=== PATIENT | male | born 1945 | race Caucasian/White ===

== ENCOUNTER 2017-04-03 22:59 | Emergency (ER) | payer OTHER ==
[2017-04-03] MEDS ORDERED: MVI, Adult with Vitamin K 10 ML, Thiamine 100 MG, Folic Acid 1 MG in Sodium Chloride 0.... IV ONE ×4 (23:03)
--- NOTE | 2017-04-03 23:05 | EDM.PDOC ---
ED HPI GENERAL MEDICAL PROBLEM - General Chief Complaint: Drug or Alcohol Abuse Stated Complaint: UNK Time Seen by Provider: 04/03/17 23:04 Source of Information: Reports: Patient - History of Present Illness INITIAL COMMENTS - FREE TEXT/NARRATIVE: HISTORY AND PHYSICAL: History of present illness: [Patient presents via EMS after drinking alcohol all day since 3 PM he was unable to get into his vehicle and his friend called the ambulance Patient is alert cooperative in good spirits no complaints, he did not want to come in but his friend was insistent as he is unable to climb into his pickup, he has been ambulatory here in the ER is noncombative and very cooperative clinically does not appear. Intoxicated however his alcohol level is came back at a .21. His renal insufficiency his creatinine is 1.7 versus baseline for him as 1.6 is on chart from previous lab, total CPK is slightly elevated at 365 No fever nausea vomiting chills sweats no chest pain shortness breath headache dizziness palpitation about a urine symptoms ] Review of systems: As per history of present illness and below otherwise all systems reviewed and negative. Past medical history: As per history of present illness and as reviewed below otherwise noncontributory. Surgical history: As per history of present illness and as reviewed below otherwise noncontributory. Social history: No reported history of drug or alcohol abuse. Family history: As per history of present illness and as reviewed below otherwise noncontributory. Physical exam: HEENT: Atraumatic, normocephalic, pupils reactive, negative for conjunctival pallor or scleral icterus, mucous membranes moist, throat clear, neck supple, nontender, trachea midline. Lungs: Clear to auscultation, breath sounds equal bilaterally, chest nontender. Heart: S1S2, regular, negative for clicks, rubs, or JVD. Abdomen: Soft, nondistended, nontender. Negative for masses or hepatosplenomegaly. Negative for costovertebral tenderness. Pelvis: Stable nontender. Genitourinary: Deferred. Rectal: Deferred. Extremities: Atraumatic, negative for cords or calf pain. Neurovascular unremarkable. Neuro: Awake, alert, oriented. Cranial nerves II through XII unremarkable. Cerebellum unremarkable. Motor and sensory unremarkable throughout. Exam nonfocal. Diagnostics: [CBC CMP cardiac enzymes EKG chest 1 view Alcohol level ] Therapeutics: [Banana bag ] Impression: [Alcohol intoxication Mild dehydration with mild rhabdomyolysis Chronic history of baseline] Definitive disposition and diagnosis as appropriate pending reevaluation and review of above. - Related Data Allergies Allergy/AdvReac Type Severity Reaction Status Date / Time No Known Allergies Allergy Verified 04/03/17 23:04 Home Meds: Home Meds Albuterol [Proventil HFA] 1 puff INH ASDIRECTED 08/07/15 [History] Aspirin/Calcium Carbonate/Mag [Aspirin Buffered 325 mg Tab] 1 tab PO DAILY 08/06 [History] Clopidogrel [Plavix] 1 tab PO DAILY 08/07/15 [History] Ferrous Gluconate [Iron] 1 tab PO DAILY 08/07/15 [History] Gluc/Jacobo-Msm#1/Vit C/Clint/Bor [Bibabea-Kwhsl-IYJ Complex Cplt] 1 tab PO DAILY 08/07/15 [History] Ibuprofen 3 tab PO TID 08/07/15 [History] Ipratropium/Albuterol Sulfate [Combivent Respimat Inhal [place]] 1 puff INH ASDIRECTED 08/07/15 [History] Metoprolol Tartrate 1 tab PO BID 08/07/15 [History] Nitroglycerin [Nitrostat] 1 tab SL ASDIRECTED 08/07/15 [History] Pantoprazole Sodium [Protonix] 1 tab PO DAILY 08/07/15 [History] Rosuvastatin Calcium [Crestor] 1 tab PO DAILY 08/07/15 [History] Tiotropium [Spiriva HandiHaler] 1 cap INH ASDIRECTED 08/07/15 [History] amLODIPine Besylate [Amlodipine Besylate] 1 tab PO DAILY 08/07/15 [History] Past Medical History HEENT History: Reports: Allergic Rhinitis Other HEENT History: wears glasses, has upper and lower dentures Cardiovascular History: Reports: Aneurysm, CAD, High Cholesterol, Hypertension Other Cardiovascular History: 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 , s/p endarterectomy of left carotid artery- aortic, bilateral iliac and left leg stents Respiratory History: Reports: Asthma, COPD, Sleep Apnea, SOB Gastrointestinal History: Reports: None Genitourinary History: Reports: None Musculoskeletal History: Reports: Fracture Other Musculoskeletal History: hx of fx ribs, states has a bad disc in his back , occasional back pain Neurological History: Reports: None Psychiatric History: Reports: None Endocrine/Metabolic History: Reports: Obesity/BMI 30+ Hematologic History: Reports: None Immunologic History: Reports: None Oncologic (Cancer) History: Reports: None Dermatologic History: Reports: None - Past Surgical History Cardiovascular Surgical History: Reports: AAA Repair, Carotid Endarterectomy, Coronary Artery Stent GI Surgical History: Reports: Colonoscopy, Hernia, Abdominal, Hernia, Inguinal Social & Family History - Tobacco Use Smoking Status *Q: Former Smoker - Recreational Drug Use Recreational Drug Use: No Drug Use in Last 12 Months: No ED ROS GENERAL - Review of Systems Review Of Systems: ROS reveals no pertinent complaints other than HPI. ED EXAM, GENERAL - Physical Exam Exam: See Below Course - Vital Signs Last Recorded V/S: Last Vital Signs Temp 97.1 F 04/03/17 23:04 Pulse 89 04/03/17 23:04 Resp 20 04/03/17 23:04 BP 167/64 H 04/03/17 23:04 Pulse Ox 92 L 04/03/17 23:04 - Orders/Labs/Meds Orders: Active Orders 24 hr Category Date Time Status EKG Documentation Completion [RC] STAT Care 04/03/17 23:00 Active Chest 1V Frontal [CR] Stat Exams 04/03/17 23:00 Taken UA W/MICROSCOPIC [URIN] Stat Lab 04/03/17 23:55 Received MVI, Adult with Vitamin K [Infuvite Adult] 10 ml Med 04/03/17 23:03 Active Thiamine [Vitamin B-1] 100 mg Folic Acid 1 mg Sodium Chloride 0.9% [Normal Saline] 1,000 ml IV ONETIME Medication Orders Multivitamins/Minerals 10 ml/Thiamine HCl 100 mg/ Folic Acid 1 mg/ Sodium Chloride 1,011.2 mls @ 150 mls/hr IV ONETIME ONE Stop: 04/04/17 05:47 Last Admin: 04/03/17 23:56 Dose: 150 mls/hr Labs: Laboratory Tests 04/03/17 04/03/17 Range/Units 22:15 22:15 WBC 11.27 H (4.0-11.0) K/uL RBC 4.87 (4.50-5.90) M/uL Hgb 15.5 (13.0-17.0) g/dL Hct 45.6 (38.0-50.0) % MCV 93.6 (80.0-98.0) fL MCH 31.8 (27.0-32.0) pg MCHC 34.0 (31.0-37.0) g/dL RDW Std Deviation 52.5 (28.0-62.0) fl RDW Coeff of Caro 15 (11.0-15.0) % Plt Count 150 (150-400) K/uL MPV 9.20 (7.40-12.00) fL Neut % (Auto) 80.0 (48.0-80.0) % Lymph % (Auto) 8.7 L (16.0-40.0) % [place] % (Auto) 8.5 (0.0-15.0) % Eos % (Auto) 2.5 (0.0-7.0) % Baso % (Auto) 0.3 (0.0-1.5) % Neut # (Auto) 9.0 H (1.4-5.7) K/uL Lymph # (Auto) 1.0 (0.6-2.4) K/uL [place] # (Auto) 1.0 H (0.0-0.8) K/uL Eos # (Auto) 0.3 (0.0-0.7) K/uL Baso # (Auto) 0.0 (0.0-0.1) K/uL Nucleated RBC % 0.0 /100WBC Nucleated RBCs # 0 K/uL Sodium 139 (136-146) mmol/L Potassium 4.7 (3.5-5.1) mmol/L Chloride 108 (98-110) mmol/L Carbon Dioxide 15 L (21-31) mmol/L BUN 24 H (6.0-23.0) mg/dL Creatinine 1.7 H (0.6-1.5) mg/dL Est Cr Clr Drug Dosing 41.15 mL/min Estimated GFR (MDRD) 39.9 ml/min Glucose 126 H (60-110) mg/dL Calcium 9.3 (8.8-10.8) mg/dL Total Bilirubin 0.3 (0.1-1.5) mg/dL AST 28 (5-40) IU/L ALT 21 (8-54) IU/L Alkaline Phosphatase 84 (40-150) Creatine Kinase 365 H (9-236) IU/L CK-MB (CK-2) 3.8 (0-6.6) ng/ml Troponin I < 0.10 (0.0-0.29) NG/ML Total Protein 8.3 H (6.0-8.0) g/dL Albumin 4.8 (3.4-4.8) g/dL Globulin 3.5 (2.0-3.5) g/dL Albumin/Globulin Ratio 1.4 (1.3-2.8) Ethyl Alcohol 211.5 mg/dL Meds: Medications Generic Name Dose Route Start Last Admin Trade Name Héctor PRN Reason Stop Dose Admin Multivitamins/Minerals 10 ml/ 1,011.2 mls @ 150 mls/hr 04/03/17 23:03 23:56 Thiamine HCl 100 mg/ Folic IV 04/04/17 05:47 150 mls/hr Acid 1 mg/ Sodium Chloride ONETIME ONE Administration Departure - Departure Time of Disposition: 00:04 Disposition: Home, Self-Care 01 Condition: Fair Clinical Impression: Alcohol intoxication, Mild dehydration - Discharge Information Forms: ED Department Discharge Additional Instructions: The following information is given to patients seen in the emergency department who are being discharged to home. This information is to outline your options for follow-up care. We provide all patients seen in our emergency department with a follow-up referral. The need for follow-up, as well as the timing and circumstances, are variable depending upon the specifics of your emergency department visit. If you don't have a primary care physician on staff, we will provide you with a referral. We always advise you to contact your personal physician following an emergency department visit to inform them of the circumstance of the visit and for follow-up with them and/or the need for any referrals to a consulting specialist. The emergency department will also refer you to a specialist when appropriate. This referral assures that you have the opportunity for follow-up care with a specialist. All of these measure are taken in an effort to provide you with optimal care, which includes your follow-up. Under all circumstances we always encourage you to contact your private physician who remains a resource for coordinating your care. When calling for follow-up care, please make the office aware that this follow-up is from your recent emergency room visit. If for any reason you are refused follow-up, please contact the [facility] emergency department at and asked to speak to the emergency department charge nurse. - My Orders Last 24 Hours: My Active Orders 04/03/17 23:00 EKG Documentation Completion [RC] STAT Chest 1V Frontal [CR] Stat 04/03/17 23:03 MVI, Adult with Vitamin K [Infuvite Adult] 10 ml Thiamine [Vitamin B-1] 100 mg Folic Acid 1 mg Sodium Chloride 0.9% [Normal Saline] 1,000 ml IV ONETIME 04/03/17 23:55 UA W/MICROSCOPIC [URIN] Stat - Assessment/Plan Last 24 Hours: My Active Orders 04/03/17 23:00 EKG Documentation Completion [RC] STAT Chest 1V Frontal [CR] Stat 04/03/17 23:03 MVI, Adult with Vitamin K [Infuvite Adult] 10 ml Thiamine [Vitamin B-1] 100 mg Folic Acid 1 mg Sodium Chloride 0.9% [Normal Saline] 1,000 ml IV ONETIME 04/03/17 23:55 UA W/MICROSCOPIC [URIN] Stat
[2017-04-03 23:43] LABS: CHLORIDE,CL 108 mmol/L (98-110); SODIUM,NA 139 mmol/L (136-146)
[2017-04-04 01:33] VITALS: BP 170/92
--- NOTE | 2017-04-04 17:38 | CR ---
EXAM DATE: 04/03/17 PATIENT'S AGE: 71 Patient: DEWAYNE ISRAEL Facility: [place], [place] Site . Site : 1945 Study: XRay Chest [id number]/1/2018 11:18:47 PM Ordering Physician: Humberto Salazar Final Report: INDICATION: Chest pain TECHNIQUE: Chest 2 views. COMPARISON: 01/16/2010 FINDINGS: Cardiovascular and mediastinum: Heart size and vasculature are normal in caliber and appearance. Sternotomy wires are present. Mediastinum is within normal limits. Lungs and pleural spaces: Lungs are clear. No sign of infiltrate or mass. No sign of pleural effusion. No pneumothorax. Bones and soft tissues: No significant findings. IMPRESSION: Unremarkable chest. Dictated by Omer Bourgeois MD @ 04/03/2017 11:30:13 PM Dictated by: Omer Bourgeois MD @ 04/03/2017 23:30:19 (Electronic Signature) Report Signed by Proxy. SHAMIR
== END 2017-04-04 01:25 | disposition home or self-care (01) ==
LOC: MW.ED 22:59
DX: F10.129 Alcohol abuse with intoxication, unspecified (principal); E86.0 Dehydration; M62.82 Rhabdomyolysis; Y90.7 Blood alcohol level of 200-239 mg/100 ml; I10 Essential (primary) hypertension; I25.10 Atherosclerotic heart disease of native coronary artery without angina pectoris; E78.00 Pure hypercholesterolemia, unspecified; J44.9 Chronic obstructive pulmonary disease, unspecified; Z95.5 Presence of coronary angioplasty implant and graft; Z87.891 Personal history of nicotine dependence; Z79.02 Long term (current) use of antithrombotics/antiplatelets; Z79.82 Long term (current) use of aspirin; Z79.899 Other long term (current) drug therapy
CPT/HCPCS: 36415; 71045; 80053; 81001; 82550; 82553; 84484; 85025; 93005; 96365; 99285; G0480; J3411; J7040; 99284

== ENCOUNTER 2018-07-13 16:34 | Emergency (ER) | payer MEDICARE, BC ==
[2018-07-13] MEDS ORDERED: Sodium Chloride 0.9% 1,000 ML IV ONE (16:54)
[2018-07-13 17:37] LABS: CHLORIDE,CL 99 mmol/L (98-107); SODIUM,NA 133 mmol/L (136-148)
--- NOTE | 2018-07-13 17:40 | EDM.PDOC ---
ED HPI GENERAL MEDICAL PROBLEM - General Chief Complaint: Abdominal Pain Stated Complaint: AMB Time Seen by Provider: 07/13/18 16:35 Source of Information: Reports: Patient History Limitations: Reports: No Limitations - History of Present Illness INITIAL COMMENTS - FREE TEXT/NARRATIVE: HISTORY AND PHYSICAL: History of present illness: Patient is a 73-year-old male presents to the ED today via EMS with concern of right lower abdominal pain 2 days. Patient describes the pain as sharp and comes and goes. Patient states the pain is worse when he presses on his lower abdomen or when he moves and better when he sits and rests. Patient states he does have a history of an inguinal repair a hernia repair many years ago and has not had issues with the repair. Patient denies any testicular tenderness or scrotal tenderness. Patient denies any other symptoms at this time. Patient was given morphine 8 mg prior to arrival to the ED via EMS. Patient has a history of AAA which has been repaired coronary artery disease s/ p bypass (few years ago per patient), peripheral vascular disease s/p iliac and leg stents, hypertension, COPD. Patient denies fever, chills, chest pain, shortness of breath, or cough. Denies headache, neck stiff ness, change in vision, syncope, or near syncope. Denies nausea, vomiting, diarrhea, constipation, or dysuria. Has not noted any blood in urine or stool. Patient has been eating and drinking appropriately. Review of systems: As per history of present illness and below otherwise all systems reviewed and negative. Past medical history: As per history of present illness and as reviewed below otherwise noncontributory. Surgical history: As per history of present illness and as reviewed below otherwise noncontributory. Social history: See social history for further information Family history: As per history of present illness and as reviewed below otherwise noncontributory. Physical exam: Physical exam is limited due to body habitus. General: Patient is alert, oriented, and in no acute distress. Patient laying comfortably on exam table. HEENT: Atraumatic, normocephalic, pupils equal and reactive bilaterally, negative for conjunctival pallor or scleral icterus, mucous membranes moist, TMs normal bilaterally, throat clear, neck supple, nontender, trachea midline. No drooling or trismus noted. No meningeal signs. No hot potato voice noted. Lungs: Clear to auscultation, breath sounds equal bilaterally, chest nontender. Heart: S1S2, regular rate and rhythm without overt murmur Abdomen: Moderate to severe pain to palpation of the right lower quadrant with guarding. Morbidly obese, nondistended. Negative for masses or hepatosplenomegaly. Negative for costovertebral tenderness. Pelvis: Stable nontender. Genitourinary: No rashes, ulcers, scars, nodules, induration, discharge, scrotal masses, hernias, or tenderness to palpation of the scrotum and scrotal contents Rectal: Deferred. Skin: Intact, warm, dry. No lesions or rashes noted. Extremities: Atraumatic, negative for cords or calf pain. Neurovascular unremarkable. Neuro: Awake, alert, oriented. Cranial nerves II through XII unremarkable. Cerebellum unremarkable. Motor and sensory unremarkable throughout. Exam nonfocal. Notes: Dr. Lutz verbally involved in patients care. Patient expresses improvement of symptoms by end of ED visit. Hip/pelvic XR shows no fractures or acute findings. Abdominal/pelvic CT shows nothing to explain patients right lower quadrant pain. Normal appendix. Normal urinary system. Bowel unremarkable. 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 Mildly enlarged prostate. CKD has been stable from past visits. Discussed the importance for follow-up with primary care provider. Voices understanding and is agreeable to plan of care. Denies any further questions or concerns at this time. Diagnostics: CBC, CMP, UA, troponin, EKG, lipase, abdominal pelvic CT Therapeutics: saline Prescription: None Impression: RLQ pain, unspecified Chronic kidney disease Plan: 1. You can Tylenol as directed for pain and discomfort. 2. Follow-up with primary care provider as discussed. 3. Return to the ED as needed and as discussed. Definitive disposition and diagnosis as appropriate pending reevaluation and review of above. - Related Data Allergies Allergy/AdvReac Type Severity Reaction Status Date / Time No Known Allergies Allergy Verified 04/03/17 23:04 Home Meds: Home Meds Albuterol [Proventil HFA] 1 puff INH ASDIRECTED 08/07/15 [History] Aspirin/Calcium Carbonate/Mag [Aspirin Buffered 325 mg Tab] 1 tab PO DAILY 08/06 [History] Nitroglycerin [Nitrostat] 1 tab SL ASDIRECTED 08/07/15 [History] amLODIPine Besylate [Amlodipine Besylate] 1 tab PO DAILY 08/07/15 [History] Carvedilol 6.25 mg PO BID 07/13/18 [History] Losartan [Cozaar] 100 mg PO DAILY 07/13/18 [History] Spironolactone [Aldactone] 25 mg PO DAILY 07/13/18 [History] atorvaSTATin [Lipitor] 80 mg PO DAILY 07/13/18 [History] hydrALAZINE [Apresoline] 100 mg PO TID 07/13/18 [History] Past Medical History HEENT History: Reports: Allergic Rhinitis Other HEENT History: wears glasses, has upper and lower dentures Cardiovascular History: Reports: Aneurysm, CAD, High Cholesterol, Hypertension Other Cardiovascular History: 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 , s/p endarterectomy of left carotid artery- aortic, bilateral iliac and left leg stents Respiratory History: Reports: Asthma, COPD, Sleep Apnea, SOB Gastrointestinal History: Reports: None Genitourinary History: Reports: None Musculoskeletal History: Reports: Fracture Other Musculoskeletal History: hx of fx ribs, states has a bad disc in his back , occasional back pain Neurological History: Reports: None Psychiatric History: Reports: None Endocrine/Metabolic History: Reports: Obesity/BMI 30+ Hematologic History: Reports: None Immunologic History: Reports: None Oncologic (Cancer) History: Reports: None Dermatologic History: Reports: None - Infectious Disease History Infectious Disease History: Reports: Chicken Pox, Measles, Mumps - Past Surgical History Head Surgeries/Procedures: Reports: None HEENT Surgical History: Reports: None Cardiovascular Surgical History: Reports: AAA Repair, Carotid Endarterectomy, Coronary Artery Bypass, Coronary Artery Stent Respiratory Surgical History: Reports: None GI Surgical History: Reports: Colonoscopy, Hernia, Abdominal, Hernia, Inguinal Male Surgical History: Reports: None Endocrine Surgical History: Reports: None Neurological Surgical History: Reports: None Musculoskeletal Surgical History: Reports: None Oncologic Surgical History: Reports: None Dermatological Surgical History: Reports: None Social & Family History - Family History Family Medical History: Noncontributory - Tobacco Use Smoking Status *Q: Former Smoker Used Tobacco, but Quit: Yes Month/Year Tobacco Last Used: 10 years - Caffeine Use Caffeine Use: Reports: Coffee - Recreational Drug Use Recreational Drug Use: No ED ROS GENERAL - Review of Systems Review Of Systems: ROS reveals no pertinent complaints other than HPI. ED EXAM, GI/ABD - Physical Exam Exam: See Below (See dictation) Course - Vital Signs Last Recorded V/S: Last Vital Signs Temp 36.7 C 07/13/18 16:45 Pulse 62 07/13/18 19:13 Resp 18 07/13/18 19:13 BP 146/83 H 07/13/18 19:13 Pulse Ox 97 07/13/18 19:13 - Orders/Labs/Meds Orders: Active Orders 24 hr Category Date Time Status EKG Documentation Completion [RC] STAT Care 07/13/18 16:54 Active Labs: Laboratory Tests 07/13/18 07/13/18 07/13/18 Range/Units 17:00 17:00 19:11 WBC 7.96 (4.0-11.0) K/uL RBC 4.75 (4.50-5.90) M/uL Hgb 14.6 (13.0-17.0) g/dL Hct 42.5 (38.0-50.0) % MCV 89.5 (80.0-98.0) fL MCH 30.7 (27.0-32.0) pg MCHC 34.4 (31.0-37.0) g/dL RDW Std Deviation 48.4 (28.0-62.0) fl RDW Coeff of Caro 15 (11.0-15.0) % Plt Count 138 L (150-400) K/uL MPV 9.00 (7.40-12.00) fL Neut % (Auto) 79.1 (48.0-80.0) % Lymph % (Auto) 10.7 L (16.0-40.0) % [place] % (Auto) 6.3 (0.0-15.0) % Eos % (Auto) 3.6 (0.0-7.0) % Baso % (Auto) 0.3 (0.0-1.5) % Neut # (Auto) 6.3 H (1.4-5.7) K/uL Lymph # (Auto) 0.9 (0.6-2.4) K/uL [place] # (Auto) 0.5 (0.0-0.8) K/uL Eos # (Auto) 0.3 (0.0-0.7) K/uL Baso # (Auto) 0.0 (0.0-0.1) K/uL Nucleated RBC % 0.0 /100WBC Nucleated RBCs # 0 K/uL Sodium 133 L (136-148) mmol/L Potassium 4.4 (3.5-5.1) mmol/L Chloride 99 (98-107) mmol/L Carbon Dioxide 21.6 (21.0-32.0) mmol/L BUN 27 H (7.0-18.0) mg/dL Creatinine 1.6 H (0.8-1.3) mg/dL Est Cr Clr Drug Dosing 43.79 mL/min Estimated GFR (MDRD) 42.6 ml/min Glucose 109 H (74-106) mg/dL Calcium 8.9 (8.5-10.1) mg/dL Total Bilirubin 0.6 (0.2-1.0) mg/dL AST 16 (15-37) IU/L ALT 16 (14-63) IU/L Alkaline Phosphatase 90 (46-116) U/L Troponin I < 0.050 (0.000-0.056) ng/mL Total Protein 7.7 (6.4-8.2) g/dL Albumin 4.1 (3.4-5.0) g/dL Globulin 3.6 (2.6-4.0) g/dL Albumin/Globulin Ratio 1.1 (0.9-1.6) Lipase 153 (73-393) U/L Urine Color YELLOW Urine Appearance CLEAR Urine pH 6.0 (5.0-8.0) Ur Specific [place] 1.015 (1.001-1.035) Urine Protein 30 H (NEGATIVE) mg/dL Urine Glucose (UA) NEGATIVE (NEGATIVE) mg/dL Urine Ketones NEGATIVE (NEGATIVE) mg/dL Urine Occult Blood NEGATIVE (NEGATIVE) Urine Nitrite NEGATIVE (NEGATIVE) Urine Bilirubin NEGATIVE (NEGATIVE) Urine Urobilinogen 0.2 (<2.0) EU/dL Ur Leukocyte Esterase NEGATIVE (NEGATIVE) Urine RBC 0-2 (0-2/HPF) Urine WBC 0-2 (0-5/HPF) Ur Epithelial Cells OCCASIONAL (NONE-FEW) Ur Renal Epithelial Cell RARE Amorphous Sediment LIGHT (NEGATIVE) Urine Bacteria FEW (NEGATIVE) Meds: Medications Discontinued Medications Generic Name Dose Route Start Last Admin Trade Name Freq PRN Reason Stop Dose Admin Sodium Chloride 1,000 mls @ 999 mls/hr 07/13/18 16:54 07/13/18 17:07 Normal Saline IV 07/13/18 17:54 999 mls/hr BOLUS ONE Administration Departure - Departure Time of Disposition: 19:47 Disposition: Home, Self-Care 01 Clinical Impression: Abdominal pain Qualifiers: Abdominal location: right lower quadrant Qualified Code(s): R10.31 - Right lower quadrant pain Chronic kidney disease (CKD) Qualifiers: Chronic kidney disease stage: unspecified stage Qualified Code(s): N18.9 - Chronic kidney disease, unspecified - Discharge Information Referrals: PCP,Unknown [Primary Care Provider] - Forms: ED Department Discharge Additional Instructions: The following information is given to patients seen in the emergency department who are being discharged to home. This information is to outline your options for follow-up care. We provide all patients seen in our emergency department with a follow-up referral. The need for follow-up, as well as the timing and circumstances, are variable depending upon the specifics of your emergency department visit. If you don't have a primary care physician on staff, we will provide you with a referral. We always advise you to contact your personal physician following an emergency department visit to inform them of the circumstance of the visit and for follow-up with them and/or the need for any referrals to a consulting specialist. The emergency department will also refer you to a specialist when appropriate. This referral assures that you have the opportunity for follow-up care with a specialist. All of these measure are taken in an effort to provide you with optimal care, which includes your follow-up. Under all circumstances we always encourage you to contact your private physician who remains a resource for coordinating your care. When calling for follow-up care, please make the office aware that this follow-up is from your recent emergency room visit. If for any reason you are refused follow-up, please contact the [facility] Emergency Department at and asked to speak to the emergency department charge nurse. [facility] [address] [place] [id number] [facility] [address] [place] [id number] 1. You can Tylenol as directed for pain and discomfort. 2. Follow-up with primary care provider as discussed. 3. Return to the ED as needed and as discussed. - My Orders Last 24 Hours: My Active Orders 07/13/18 16:54 EKG Documentation Completion [RC] STAT - Assessment/Plan Last 24 Hours: My Active Orders 07/13/18 16:54 EKG Documentation Completion [RC] STAT
--- NOTE | 2018-07-13 19:03 | CT ---
INDICATION: Intermittent right lower quadrant pain for the past 3 months. Pain became constant last night. COMPARISON: COMPARISON DATE TECHNIQUE: CT examination of the abdomen and pelvis was performed without contrast enhancement using 3 mm thick axial sections from the lung bases through the pubic symphysis. Oral contrast was not administered. Please note that all CT scans at this facility use dose modulation, iterative reconstruction, and/or weight-based dosing when appropriate to reduce radiation dose to as low as reasonably achievable. FINDINGS: In the abdomen, the unenhanced liver, pancreas, and ADRENALS are normal in appearance. The spleen is top-normal in size, measuring 12.3 centimeters in length. Vascular calcifications are seen in both kidneys. There is moderate left renal atrophy. The right kidney is normal in size. There is no sign of urinary collecting system calculus, hydronephrosis, or hydroureter. The gallbladder is normal in appearance. An abdominal aortic endograft is present with limbs passing into both common iliac arteries. There is mild aneurysmal dilatation of the superior infrarenal abdominal aorta with a maximal AP diameter 4.7 centimeters, completely filled by the endograft. There is no sign of retroperitoneal mass or adenopathy. The stomach, loops of small bowel, and colon in the abdomen are normal in appearance. Incidental note is made of weakening of the fascia in the anterior superior abdominal wall just below the xiphoid, without hernia formation. In the pelvis, the appendix is normal in appearance with no sign of inflammatory process. The loops of small bowel and colon in the pelvis are normal in appearance. The prostate is mildly enlarged, measuring 4.9 centimeters in diameter. It is otherwise normal in appearance. The urinary bladder is normal in appearance. There is no sign of pelvic or inguinal mass or adenopathy. There is mild atelectasis of the posterior left lung base. There is minimal bilateral pleural thickening posteriorly in the lung bases. There is mild scoliosis of the thoracolumbar spine convex towards the left. There is prominent L5-S1 and mild L4-5 disc degenerative disease. IMPRESSION: Nothing seen to explain the patient`s right lower quadrant pain. Normal appearance of the appendix. Normal appearance of the right urinary system. The bowel in the right lower quadrant is unremarkable. Satisfactory appearance of an aortic endograft, with aneurysmal dilatation of the superior infrarenal abdominal aorta of 4.7 centimeters completely filled by the superior portion of the endograft. CT of the pelvis shows mild enlargement of the prostate. Please note that all CT scans at this facility use dose modulation, iterative reconstruction, and/or weight-based dosing when appropriate to reduce radiation dose to as low as reasonably achievable. Dictated by Derian Reece MD @ Jul 13 2018 6:54PM Signed by Dr. Derian Reece @ Jul 13 2018 7:02PM
--- NOTE | 2018-07-13 19:03 | CR ---
INDICATION: Right hip pain TECHNIQUE: AP pelvis single view right hip COMPARISON: None FINDINGS: Bones: Alignment is normal. No fractures or bone lesions. Joint spaces: Unremarkable. Soft tissues: Unremarkable. IMPRESSION: Negative. Dictated by Omer Bourgeois MD @ 07/13/2018 7:03:16 PM Dictated by: Omer Bourgeois MD @ 07/13/2018 19:03:23 (Electronically Signed)
[2018-07-13 20:22] VITALS: BP 183/68
== END 2018-07-13 20:22 | disposition home or self-care (01) ==
LOC: MW.ED 16:34
DX: I12.9 Hypertensive chronic kidney disease with stage 1 through stage 4 chronic kidney disease, or unspecified chronic kidney disease (principal); N18.9 Chronic kidney disease, unspecified; R10.31 Right lower quadrant pain; E66.9 Obesity, unspecified; I25.10 Atherosclerotic heart disease of native coronary artery without angina pectoris; J44.9 Chronic obstructive pulmonary disease, unspecified; Z79.82 Long term (current) use of aspirin; Z79.899 Other long term (current) drug therapy; Z95.1 Presence of aortocoronary bypass graft; Z87.891 Personal history of nicotine dependence
CPT/HCPCS: 73502; 74176; 80053; 81001; 83690; 84484; 85025; 96360; 96361; 99285; J7040

== ENCOUNTER 2021-02-22 15:03 | Observation (INO) | payer OTHER, MEDICARE, BC ==
[2021-02-22] MEDS ORDERED: Nitroglycerin 0.4 MG Tab.SL SL PRN ×2 (15:14→20:44)
--- NOTE | 2021-02-22 15:17 | EDM.PDOC ---
ED HPI GENERAL MEDICAL PROBLEM - General Chief Complaint: Chest Pain Stated Complaint: CHEST PAIN SOB Time Seen by Provider: 02/22/21 15:03 Source of Information: Reports: Patient History Limitations: Reports: No Limitations - History of Present Illness INITIAL COMMENTS - FREE TEXT/NARRATIVE: 75-year-old male past medical history CAD status post CABG, COPD, hypertension, hyperlipidemia, CKD, AAA s/p repair presents for chest pain shortness of breath. Patient notes that for the last 3 days he has had on and off chest pain. It is in his diffuse chest worse on his left side. No radiation. He notes feeling short of breath. Does not notice it is worse with exertion. Nothing seems to make it better. Has been taking multiple doses of nitroglycerin over the past several days which does temporarily help. Today he notes that pain is worse and despite using nitroglycerin 4 times pain does not seem to be improving. He denies any lower extremity swelling or pain. He states compliance with his medications including daily aspirin. He is not on any blood thinning medications, no Plavix or Brilinta but does take 325 mg aspirin daily Chest Pain Score (Numeric/FACES): 6 - Related Data Allergies Allergy/AdvReac Type Severity Reaction Status Date / Time No Known Allergies Allergy Verified 02/22/21 15:13 Home Meds: Home Meds Albuterol [Proventil HFA] 1 puff INH ASDIRECTED 08/07/15 [History] Aspirin/Calcium Carbonate/Mag [Aspirin Buffered 325 mg Tab] 1 tab PO DAILY 08/07/15 [History] Nitroglycerin [Nitrostat] 1 tab SL ASDIRECTED 08/07/15 [History] amLODIPine Besylate [Amlodipine Besylate] 1 tab PO DAILY 08/07/15 [History] Losartan [Cozaar] 100 mg PO DAILY 07/13/18 [History] Spironolactone [Aldactone] 25 mg PO DAILY 07/13/18 [History] atorvaSTATin [Lipitor] 80 mg PO DAILY 07/13/18 [History] carvediloL [Carvedilol] 6.25 mg PO BID 07/13/18 [History] hydrALAZINE [Apresoline] 100 mg PO TID 07/13/18 [History] Budesonide/Formoterol [Symbicort 160-4.5 MCG] 6 gm PO DAILY 02/22/21 [History] Past Medical History HEENT History: Reports: Allergic Rhinitis Other HEENT History: wears glasses, has upper and lower dentures Cardiovascular History: Reports: Aneurysm, CAD, High Cholesterol, Hypertension Other Cardiovascular History: 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, s/p endarterectomy of left carotid artery- aortic, bilateral iliac and left leg stents Respiratory History: Reports: Asthma, COPD, Sleep Apnea, SOB Gastrointestinal History: Reports: None Genitourinary History: Reports: None Musculoskeletal History: Reports: Fracture Other Musculoskeletal History: hx of fx ribs, states has a bad disc in his back, occasional back pain Neurological History: Reports: None Psychiatric History: Reports: None Endocrine/Metabolic History: Reports: Obesity/BMI 30+ Hematologic History: Reports: None Immunologic History: Reports: None Oncologic (Cancer) History: Reports: None Dermatologic History: Reports: None - Infectious Disease History Infectious Disease History: Reports: Chicken Pox, Measles, Mumps - Past Surgical History Head Surgeries/Procedures: Reports: None HEENT Surgical History: Reports: None Cardiovascular Surgical History: Reports: AAA Repair, Carotid Endarterectomy, Coronary Artery Bypass, Coronary Artery Stent Respiratory Surgical History: Reports: None GI Surgical History: Reports: Colonoscopy, Hernia, Abdominal, Hernia, Inguinal Male Surgical History: Reports: None Endocrine Surgical History: Reports: None Neurological Surgical History: Reports: None Musculoskeletal Surgical History: Reports: None Oncologic Surgical History: Reports: None Dermatological Surgical History: Reports: None Social & Family History - Family History Family Medical History: No Pertinent Family History - Caffeine Use Caffeine Use: Reports: Coffee ED ROS GENERAL - Review of Systems Review Of Systems: Comprehensive ROS is negative, except as noted in HPI. ED EXAM, GENERAL - Physical Exam Exam: See Below Exam Limited By: No Limitations General Appearance: Alert, WD/WN, No Apparent Distress Ears: Hearing Grossly Normal Throat/Mouth: Normal Voice, No Airway Compromise Head: Atraumatic, Normocephalic Respiratory/Chest: No Respiratory Distress, Lungs Clear, Normal Breath Sounds, No Accessory Muscle Use Cardiovascular: Normal Peripheral Pulses, Other (irregular rhythm, symmetric trace b/l pitting edema) GI/Abdominal: Soft, Non-Tender Extremities: Normal Inspection Neurological: Alert, Normal Cognition, Normal Gait Psychiatric: Normal Affect, Normal Mood Skin Exam: Warm, Dry, Intact, Normal Color #1 Interpretation EKG Date: 02/22/21 Time: 15:23 Rhythm: A-Fib Rate (Beats/Min): 100 [place]: Normal P-Wave: Absent QRS: Normal ST-T: Normal QT: Normal Comparison: Change From Previous EKG EKG Interpretation Comments: new onset atrial fibrillation Course - Vital Signs Last Recorded V/S: Last Vital Signs Temp 97.8 F 02/22/21 15:15 Pulse 70 02/22/21 16:19 Resp 18 02/22/21 15:15 BP 111/84 02/22/21 16:19 Pulse Ox 96 02/22/21 16:19 - Orders/Labs/Meds Orders: Active Orders 24 hr Category Date Time Status Cardiac Monitoring [RC] . DIRECTED Care 02/22/21 15:12 Active Pulse Oximetry [RC] ASDIRECTED Care 02/22/21 15:12 Active TROPONIN I [CHEM] Stat Lab 02/22/21 18:00 Ordered Saline Lock Insert [OM.PC] Stat Oth 02/22/21 15:12 Ordered Labs: Laboratory Tests 02/22/21 02/22/21 02/22/21 Range/Units 15:12 15:41 15:41 WBC 7.44 (4.0-11.0) K/uL RBC 4.79 (4.50-5.90) M/uL Hgb 14.1 (13.0-17.0) g/dL Hct 42.0 (38.0-50.0) % MCV 87.7 (80.0-98.0) fL MCH 29.4 (27.0-32.0) pg MCHC 33.6 (31.0-37.0) g/dL RDW Std Deviation 47.9 (28.0-62.0) fl RDW Coeff of Caro 15 (11.0-15.0) % Plt Count 144 L (150-400) K/uL MPV 9.10 (7.40-12.00) fL Neut % (Auto) 74.8 (48.0-80.0) % Lymph % (Auto) 11.7 L (16.0-40.0) % [place] % (Auto) 9.7 (0.0-15.0) % Eos % (Auto) 3.4 (0.0-7.0) % Baso % (Auto) 0.4 (0.0-1.5) % Neut # (Auto) 5.6 (1.4-5.7) K/uL Lymph # (Auto) 0.9 (0.6-2.4) K/uL [place] # (Auto) 0.7 (0.0-0.8) K/uL Eos # (Auto) 0.3 (0.0-0.7) K/uL Baso # (Auto) 0.0 (0.0-0.1) K/uL Nucleated RBC % 0.0 /100WBC Nucleated RBCs # 0 K/uL INR APTT (18.6-31.3) SEC D-Dimer, Quantitative 1.98 H (0.0-0.50) mg/L FEU Sodium (136-148) mmol/L Potassium (3.5-5.1) mmol/L Chloride (98-107) mmol/L Carbon Dioxide (21.0-32.0) mmol/L BUN (7.0-18.0) mg/dL Creatinine (0.8-1.3) mg/dL Est Cr Clr Drug Dosing mL/min Estimated GFR (MDRD) ml/min Glucose (74-106) mg/dL Calcium (8.5-10.1) mg/dL Magnesium (1.8-2.4) mg/dL Troponin I (0.000-0.056) ng/mL B-Natriuretic Peptide (<100) PG/ML SARS-CoV-2 RNA (KELI) NEGATIVE (NEGATIVE) 02/22/21 02/22/21 02/22/21 Range/Units 15:41 15:41 15:41 WBC (4.0-11.0) K/uL RBC (4.50-5.90) M/uL Hgb (13.0-17.0) g/dL Hct (38.0-50.0) % MCV (80.0-98.0) fL MCH (27.0-32.0) pg MCHC (31.0-37.0) g/dL RDW Std Deviation (28.0-62.0) fl RDW Coeff of Caro (11.0-15.0) % Plt Count (150-400) K/uL MPV (7.40-12.00) fL Neut % (Auto) (48.0-80.0) % Lymph % (Auto) (16.0-40.0) % [place] % (Auto) (0.0-15.0) % Eos % (Auto) (0.0-7.0) % Baso % (Auto) (0.0-1.5) % Neut # (Auto) (1.4-5.7) K/uL Lymph # (Auto) (0.6-2.4) K/uL [place] # (Auto) (0.0-0.8) K/uL Eos # (Auto) (0.0-0.7) K/uL Baso # (Auto) (0.0-0.1) K/uL Nucleated RBC % /100WBC Nucleated RBCs # K/uL INR 1.00 APTT 31.3 (18.6-31.3) SEC D-Dimer, Quantitative (0.0-0.50) mg/L FEU Sodium 137 (136-148) mmol/L Potassium 4.2 (3.5-5.1) mmol/L Chloride 102 (98-107) mmol/L Carbon Dioxide 22.3 (21.0-32.0) mmol/L BUN 33 H (7.0-18.0) mg/dL Creatinine 1.7 H (0.8-1.3) mg/dL Est Cr Clr Drug Dosing 39.99 mL/min Estimated GFR (MDRD) 39.5 ml/min Glucose 110 H (74-106) mg/dL Calcium 9.2 (8.5-10.1) mg/dL Magnesium 2.1 (1.8-2.4) mg/dL Troponin I < 0.050 (0.000-0.056) ng/mL B-Natriuretic Peptide 135 H (<100) PG/ML SARS-CoV-2 RNA (KELI) (NEGATIVE) Meds: Medications Discontinued Medications Generic Name Dose Route Start Last Admin Trade Name Freq PRN Reason Stop Dose Admin Apixaban 5 mg 02/22/21 17:45 Apixaban 5 Mg Tab PO 02/22/21 17:46 ONETIME ONE Diltiazem HCl 25 mg 02/22/21 15:24 02/22/21 15:55 Diltiazem 25 Mg/5 Ml Sdv IVPUSH 02/22/21 15:25 25 mg ONETIME ONE Administration Sodium Chloride 500 mls @ 999 mls/hr 02/22/21 16:29 02/22/21 17:00 Normal Saline IV 02/22/21 16:59 999 mls/hr .Bolus ONE Administration Nitroglycerin 0.4 mg 02/22/21 15:14 Nitroglycerin 0.4 Mg Tab.Sl SL Q5M PRN Chest Pain - Re-Assessments/Exams Free Text/Narrative Re-Assessment/Exam: 02/22/21 15:23 We will start cardiac work-up. Patient's EKG does show new onset atrial fibrillation. 02/22/21 15:30 Will give cardizem 25mg IV for new onset Afib with hypertension and tachycardia (only to low 100s, not really Afib RVR). Will reassess. Will defer nitroglycerin as patient has had several today with minimal relief. His pain right now is minimal although he does still feel an achy pain. Will reassess after diltiazem and consider additional analgesia. 02/22/21 16:29 Labs show CKD at baseline, negative troponin, significantly elevated D-dimer. Will give 500 cc bolus and get CTA chest to rule out pulmonary embolism. Patient does note that after getting his heart rate down to the 60s with the diltiazem he is feeling much better and no longer with any chest pain. Departure - Departure Time of Disposition: 17:52 Disposition: DC[facility] to [facility] 05 Condition: Good Clinical Impression: Atrial fibrillation Qualifiers: Atrial fibrillation type: unspecified Qualified Code(s): I48.91 - Unspecified atrial fibrillation - Discharge Information Referrals: Wojciech Matos [employer] [Primary Care Provider] - Forms: ED Department Discharge Sepsis Event Note (ED) - Focused Exam Vital Signs: Vital Signs Temp Pulse Resp BP Pulse Ox 02/22/21 16:19 70 111/84 96 02/22/21 16:00 66 105/68 96 02/22/21 15:15 97.8 F 97 18 167/85 H 97 - My Orders Last 24 Hours: My Active Orders 02/22/21 15:12 Cardiac Monitoring [RC] . DIRECTED Pulse Oximetry [RC] ASDIRECTED Saline Lock Insert [OM.PC] Stat 02/22/21 18:00 TROPONIN I [CHEM] Stat - Assessment/Plan Last 24 Hours: My Active Orders 02/22/21 15:12 Cardiac Monitoring [RC] . DIRECTED Pulse Oximetry [RC] ASDIRECTED Saline Lock Insert [OM.PC] Stat 02/22/21 18:00 TROPONIN I [CHEM] Stat
[2021-02-22] MEDS ORDERED: Diltiazem 25 MG/5 ML SDV IVPUSH ONE (15:24)
--- NOTE | 2021-02-22 15:49 | CR ---
Indication: Chest pain Technique: A single view of the chest was obtained in AP upright study Comparison: None Findings: Heart size top normal. Median sternotomy. Airspace opacity at the left base probably a combination of airspace disease and small effusion. Patchy opacity at the right base. No pneumothorax. Impression: Prior sternotomy. Top-normal size heart. Bibasilar air space process, left greater than right and probable small left effusion. Dictated by Paulo Long MD @ 02/22/2021 3:47:50 PM (Electronically Signed)
[2021-02-22 16:27] LABS: BLOOD UREA NITROGEN,BUN 33 mg/dL (7.0-18.0); CARBON DIOXIDE,CO2 22.3 mmol/L (21.0-32.0); CHLORIDE,CL 102 mmol/L (98-107); GLUCOSE RANDOM 110 mg/dL (74-106); POTASSIUM,K 4.2 mmol/L (3.5-5.1); SODIUM,NA 137 mmol/L (136-148)
[2021-02-22] MEDS ORDERED: Sodium Chloride 0.9% 500 ML IV ONE (16:29)
--- NOTE | 2021-02-22 17:39 | CT ---
INDICATION: Atrial fibrillation. Chest pain. Elevated D-dimer. COMPARISON: No prior transaxial study TECHNIQUE: : CT examination of the chest was performed with the uneventful intravenous administration of 75 cc of Isovue 370 while thin axial sections were obtained from above the apices of the lungs to the lung bases. Please note that all CT scans at this facility use dose modulation, iterative reconstruction, and/or weight-based dosing when appropriate to reduce radiation dose to as low as reasonably achievable. FINDINGS: : HEART and MEDIASTINUM: Enlarged heart. Atherosclerotic vascular calcifications. Sternotomy. No mediastinal or hilar adenopathy or mass PULMONARY ARTERIAL CIRCULATION: There is no visible intraluminal filling defect to suggest pulmonary embolus. LUNGS: Minimal bibasilar airspace process likely atelectasis. PLEURAL SPACES: No pleural effusion or pneumothorax. Large pericardial phrenic angle fat pads give the impression of pleural thickening on the chest x-ray. VISUALIZED UPPER ABDOMEN: Hepatic steatosis. Endovascular repair of an abdominal aortic aneurysm marginally visualized on this study OSSEOUS STRUCTURES: Degenerative changes TUBES and LINES: None. IMPRESSION: 1. Enlarged heart. Sternotomy. 2. No indication of pulmonary embolus. 3. Trace bibasilar atelectasis. No pleural effusion or pneumothorax. Please note that all CT scans at this facility use dose modulation, iterative reconstruction, and/or weight-based dosing when appropriate to reduce radiation dose to as low as reasonably achievable. Dictated by Paulo Long MD @ 02/22/2021 5:38:49 PM (Electronically Signed)
[2021-02-22] MEDS ORDERED: Apixaban 5 MG Tab PO ONE (17:45)
[2021-02-22] MEDS ORDERED: Acetaminophen 325 MG Tab PO PRN (18:20)
[2021-02-22] MEDS ORDERED: Nitroglycerin 0.4 MG Tab.SL SL SCH (18:30)
[2021-02-22] MEDS ORDERED: Budesonide/Formoterol 160-4.5 MCG/Puff 6 GM Inhaler INH SCH (18:30)
[2021-02-22] MEDS ORDERED: ALBUTEROL INH SCH (18:30)
[2021-02-22] MEDS ORDERED: Iopamidol 755 MG/ML 500 ML Multipack Bottle IVPUSH STA (18:55)
--- NOTE | 2021-02-22 19:35 | PCM.HP.2 ---
H&P History of Present Illness - General Date of Service: 02/22/21 Admit Problem/Dx: Admission Diagnosis/Problem Admission Diagnosis/Problem Atrial fibrillation - History of Present Illness Initial Comments - Free Text/Narative: 75-year-old male past medical history CAD status post CABG, COPD, hypertension, hyperlipidemia, CKD, AAA s/p repair presents with several weeks of both exertional and non exertional chest pains. He says this has progressively become more frequent to the point that he sometimes gets 3- 4 episodes a day each lasting anywhere from 30s to a few minutes. He has to take anywhere from 1-3 nitroglycerine tabs to relieve the chest pains. He has also noticed episodes of rapid heart beat at home. Today he decided to come to the ED because his symptoms were not getting any better. Patient notes that for the last 3 days he has had on and off chest pain. It is in his diffuse chest worse on his left side. No radiation. He notes feeling short of breath. Today he notes that pain is worse and despite using nitroglycerin 4 times pain does not seem to be improving. He denies any lower extremity swelling or pain. He states compliance with his medications including daily aspirin. Chest Pain Score (Numeric/FACES): 6 - Related Data Allergies/Adverse Reactions: Allergies Allergy/AdvReac Type Severity Reaction Status Date / Time No Known Allergies Allergy Verified 02/22/21 15:13 Home Medications: Home Meds Albuterol [Proventil HFA] 1 puff INH ASDIRECTED 08/07/15 [History] Aspirin/Calcium Carbonate/Mag [Aspirin Buffered 325 mg Tab] 1 tab PO DAILY 08/07/15 [History] Nitroglycerin [Nitrostat] 1 tab SL ASDIRECTED 08/07/15 [History] amLODIPine Besylate [Amlodipine Besylate] 1 tab PO DAILY 08/07/15 [History] Losartan [Cozaar] 100 mg PO DAILY 07/13/18 [History] Spironolactone [Aldactone] 25 mg PO DAILY 07/13/18 [History] atorvaSTATin [Lipitor] 80 mg PO DAILY 07/13/18 [History] carvediloL [Carvedilol] 6.25 mg PO BID 07/13/18 [History] hydrALAZINE [Apresoline] 100 mg PO TID 05/13/19 [History] Budesonide/Formoterol [Symbicort 160-4.5 MCG] 6 gm PO DAILY 02/22/21 [History] Past Medical History HEENT History: Reports: Allergic Rhinitis Other HEENT History: wears glasses, has upper and lower dentures Cardiovascular History: Reports: Aneurysm, CAD, High Cholesterol, Hypertension Other Cardiovascular History: 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, s/p endarterectomy of left carotid artery- aortic, bilateral iliac and left leg stents Respiratory History: Reports: Asthma, COPD, Sleep Apnea, SOB Gastrointestinal History: Reports: None Genitourinary History: Reports: None Musculoskeletal History: Reports: Fracture Other Musculoskeletal History: hx of fx ribs, states has a bad disc in his back, occasional back pain Neurological History: Reports: None Psychiatric History: Reports: None Endocrine/Metabolic History: Reports: Obesity/BMI 30+ Hematologic History: Reports: None Immunologic History: Reports: None Oncologic (Cancer) History: Reports: None Dermatologic History: Reports: None - Infectious Disease History Infectious Disease History: Reports: Chicken Pox, Measles, Mumps - Past Surgical History Head Surgeries/Procedures: Reports: None HEENT Surgical History: Reports: None Cardiovascular Surgical History: Reports: AAA Repair, Carotid Endarterectomy, Coronary Artery Bypass, Coronary Artery Stent Other Cardiovascular Surgeries/Procedures: AAA stent with fem-pop stent on left Respiratory Surgical History: Reports: None GI Surgical History: Reports: Colonoscopy, Hernia, Abdominal, Hernia, Inguinal Male Surgical History: Reports: None Endocrine Surgical History: Reports: None Neurological Surgical History: Reports: None Musculoskeletal Surgical History: Reports: None Oncologic Surgical History: Reports: None Dermatological Surgical History: Reports: None Social & Family History - Family History Family Medical History: No Pertinent Family History - Tobacco Use Tobacco Use Status *Q: Former Tobacco User Used Tobacco, but Quit: Yes Month/Year Tobacco Last Used: 8 year - Caffeine Use Caffeine Use: Reports: Coffee H&P Review of Systems - Review of Systems: Review Of Systems: Comprehensive ROS is negative, except as noted in HPI. Exam - Exam Exam: See Below - Vital Signs Vital Signs: Last Vital Signs Temp 97.8 F 02/22/21 15:15 Pulse 89 02/22/21 18:22 Resp 17 02/22/21 18:22 BP 150/72 H 02/22/21 18:22 Pulse Ox 95 12/23/21 18:22 Weight: 251 lb - Exam Physical Exam Comments:: General: Obese male. In no distress CVS: S1S2 appreciated. RRR lungs: clear bilaterally pa: soft,non tender. bowel sounds present ext: no clubbing, cyanosis or edema neuro: non focal - Patient Data Lab Results Last 24 hrs: Laboratory Results - last 24 hr 02/22/21 02/22/21 02/22/21 Range/Units 15:12 15:41 15:41 WBC 7.44 (4.0-11.0) K/uL RBC 4.79 (4.50-5.90) M/uL Hgb 14.1 (13.0-17.0) g/dL Hct 42.0 (38.0-50.0) % MCV 87.7 (80.0-98.0) fL MCH 29.4 (27.0-32.0) pg MCHC 33.6 (31.0-37.0) g/dL RDW Std Deviation 47.9 (28.0-62.0) fl RDW Coeff of Caro 15 (11.0-15.0) % Plt Count 144 L (150-400) K/uL MPV 9.10 (7.40-12.00) fL Neut % (Auto) 74.8 (48.0-80.0) % Lymph % (Auto) 11.7 L (16.0-40.0) % [place] % (Auto) 9.7 (0.0-15.0) % Eos % (Auto) 3.4 (0.0-7.0) % Baso % (Auto) 0.4 (0.0-1.5) % Neut # (Auto) 5.6 (1.4-5.7) K/uL Lymph # (Auto) 0.9 (0.6-2.4) K/uL [place] # (Auto) 0.7 (0.0-0.8) K/uL Eos # (Auto) 0.3 (0.0-0.7) K/uL Baso # (Auto) 0.0 (0.0-0.1) K/uL Nucleated RBC % 0.0 /100WBC Nucleated RBCs # 0 K/uL INR APTT (18.6-31.3) SEC D-Dimer, Quantitative 1.98 H (0.0-0.50) mg/L FEU Sodium (136-148) mmol/L Potassium (3.5-5.1) mmol/L Chloride (98-107) mmol/L Carbon Dioxide (21.0-32.0) mmol/L BUN (7.0-18.0) mg/dL Creatinine (0.8-1.3) mg/dL Est Cr Clr Drug Dosing mL/min Estimated GFR (MDRD) ml/min Glucose (74-106) mg/dL Calcium (8.5-10.1) mg/dL Magnesium (1.8-2.4) mg/dL Troponin I (0.000-0.056) ng/mL B-Natriuretic Peptide (<100) PG/ML SARS-CoV-2 RNA (KELI) NEGATIVE (NEGATIVE) 02/22/21 02/22/21 02/22/21 Range/Units 15:41 15:41 15:41 WBC (4.0-11.0) K/uL RBC (4.50-5.90) M/uL Hgb (13.0-17.0) g/dL Hct (38.0-50.0) % MCV (80.0-98.0) fL MCH (27.0-32.0) pg MCHC (31.0-37.0) g/dL RDW Std Deviation (28.0-62.0) fl RDW Coeff of Caro (11.0-15.0) % Plt Count (150-400) K/uL MPV (7.40-12.00) fL Neut % (Auto) (48.0-80.0) % Lymph % (Auto) (16.0-40.0) % [place] % (Auto) (0.0-15.0) % Eos % (Auto) (0.0-7.0) % Baso % (Auto) (0.0-1.5) % Neut # (Auto) (1.4-5.7) K/uL Lymph # (Auto) (0.6-2.4) K/uL [place] # (Auto) (0.0-0.8) K/uL Eos # (Auto) (0.0-0.7) K/uL Baso # (Auto) (0.0-0.1) K/uL Nucleated RBC % /100WBC Nucleated RBCs # K/uL INR 1.00 APTT 31.3 (18.6-31.3) SEC D-Dimer, Quantitative (0.0-0.50) mg/L FEU Sodium 137 (136-148) mmol/L Potassium 4.2 (3.5-5.1) mmol/L Chloride 102 (98-107) mmol/L Carbon Dioxide 22.3 (21.0-32.0) mmol/L BUN 33 H (7.0-18.0) mg/dL Creatinine 1.7 H (0.8-1.3) mg/dL Est Cr Clr Drug Dosing 39.99 mL/min Estimated GFR (MDRD) 39.5 ml/min Glucose 110 H (74-106) mg/dL Calcium 9.2 (8.5-10.1) mg/dL Magnesium 2.1 (1.8-2.4) mg/dL Troponin I < 0.050 (0.000-0.056) ng/mL B-Natriuretic Peptide 135 H (<100) PG/ML SARS-CoV-2 RNA (KELI) (NEGATIVE) 02/22/21 Range/Units 18:02 WBC (4.0-11.0) K/uL RBC (4.50-5.90) M/uL Hgb (13.0-17.0) g/dL Hct (38.0-50.0) % MCV (80.0-98.0) fL MCH (27.0-32.0) pg MCHC (31.0-37.0) g/dL RDW Std Deviation (28.0-62.0) fl RDW Coeff of Caro (11.0-15.0) % Plt Count (150-400) K/uL MPV (7.40-12.00) fL Neut % (Auto) (48.0-80.0) % Lymph % (Auto) (16.0-40.0) % [place] % (Auto) (0.0-15.0) % Eos % (Auto) (0.0-7.0) % Baso % (Auto) (0.0-1.5) % Neut # (Auto) (1.4-5.7) K/uL Lymph # (Auto) (0.6-2.4) K/uL [place] # (Auto) (0.0-0.8) K/uL Eos # (Auto) (0.0-0.7) K/uL Baso # (Auto) (0.0-0.1) K/uL Nucleated RBC % /100WBC Nucleated RBCs # K/uL INR APTT (18.6-31.3) SEC D-Dimer, Quantitative (0.0-0.50) mg/L FEU Sodium (136-148) mmol/L Potassium (3.5-5.1) mmol/L Chloride (98-107) mmol/L Carbon Dioxide (21.0-32.0) mmol/L BUN (7.0-18.0) mg/dL Creatinine (0.8-1.3) mg/dL Est Cr Clr Drug Dosing mL/min Estimated GFR (MDRD) ml/min Glucose (74-106) mg/dL Calcium (8.5-10.1) mg/dL Magnesium (1.8-2.4) mg/dL Troponin I < 0.050 (0.000-0.056) ng/mL B-Natriuretic Peptide (<100) PG/ML SARS-CoV-2 RNA (KELI) (NEGATIVE) Result Diagrams: 02/22/21 15:41 02/22/21 15:41 Sepsis Event Note - Evaluation Sepsis Screening Result: No Definite Risk - Focused Exam Vital Signs: Vital Signs Temp Pulse Resp BP Pulse Ox 02/22/21 18:22 89 17 150/72 H 95 02/22/21 16:19 70 111/84 96 02/22/21 16:00 66 105/68 96 02/22/21 15:15 97.8 F 97 18 167/85 H 97 Problem List Initiated/Reviewed/Updated: Yes Orders Last 24hrs: Active Orders 24 hr Category Date Time Status Patient Status [ADT] Routine ADT 02/22/21 18:03 Active Cardiac Monitoring [RC] . DIRECTED Care 02/22/21 15:12 Active Oxygen Therapy [RC] PRN Care 02/22/21 18:20 Active Pulse Oximetry [RC] ASDIRECTED Care 02/22/21 15:12 Active RT Post Treatment Assessment [RC] Click to Edit Care 02/22/21 18:26 Active RT Pre-Treatment Assessment [RC] Click to Edit Care 02/22/21 18:26 Active Telemetry Monitoring [Cardiac Monitoring] [RC] . Care 02/22/21 18:38 Active DIRECTED Up ad Charity [RC] ASDIRECTED Care 02/22/21 18:20 Active VTE/DVT Education [RC] PER UNIT ROUTINE Care 02/22/21 18:20 Active Vital Signs [RC] Q4H Care 02/22/21 18:20 Active Regular Diet [DIET] Diet 02/22/21 Dinner Active BASIC METABOLIC PANEL,BMP [CHEM] AM Lab 02/23/21 05:11 Ordered TROPONIN I [CHEM] Q6H Lab 02/22/21 20:00 Ordered Acetaminophen [TylenoL] Med 02/22/21 18:20 Active 650 mg PO Q4H PRN Albuterol Med 02/22/21 18:30 Pending 1 puff INH ASDIRECTED Aspirin [Ecotrin] Med 02/22/21 18:30 Active 325 mg PO DAILY Budesonide/Formoterol [Symbicort 160-4.5 MCG] Med 02/22/21 18:30 Pending 6 gm INH DAILY Losartan [Cozaar] Med 02/22/21 18:30 Active 100 mg PO DAILY Nitroglycerin [Nitrostat] Med 02/22/21 18:30 Pending 0.4 mg SL ASDIRECTED Spironolactone [Aldactone] Med 02/22/21 18:30 Active 25 mg PO DAILY amLODIPine [Norvasc] Med 02/22/21 18:30 Active 10 mg PO DAILY carvediloL [Coreg] Med 02/22/21 18:30 Active 6.25 mg PO BID hydrALAZINE [Apresoline] Med 02/22/21 22:00 Active 100 mg PO TID Saline Lock Insert [OM.PC] Stat Oth 02/22/21 15:12 Ordered Resuscitation Status Routine Resus Stat 02/22/21 18:20 Ordered Medication Orders Acetaminophen (Acetaminophen 325 Mg Tab) 650 mg PO Q4H PRN PRN Reason: Pain (Mild 1-3)/fever Amlodipine Besylate (Amlodipine 5 Mg Tab) 10 mg PO DAILY TIA Aspirin (Aspirin 325 Mg Tab.Ec) 325 mg PO DAILY TIA Budesonide/Formoterol Fumarate (Budesonide/Formoterol 160-4.5 Mcg/Puff 6 Gm Inhaler) 6 gm INH DAILY TIA Carvedilol (Carvedilol 6.25 Mg Tab) 6.25 mg PO BID [facility] Hydralazine HCl (Hydralazine 25 Mg Tab) 100 mg PO TID [facility] Losartan Potassium (Losartan 50 Mg Tab) 100 mg PO DAILY [facility] Nitroglycerin (Nitroglycerin 0.4 Mg Tab.Sl) 0.4 mg SL ASDIRECTED [facility] Non-Formulary Medication (Albuterol) 1 puff INH ASDIRECTED [facility] Spironolactone (Spironolactone 25 Mg Tab) 25 mg PO DAILY [facility] Assessment/Plan Comment:: Unstable angina Admit under observation status. serial troponin ASA, statin , ntg prn Pt has been advised to go to his Radiology Scheduler in [facility] for an angiogram Afib with RVR cardizem in addition to coreg Obesity HTN Full code status - Mortality Measure Prognosis:: Good
[2021-02-22] MEDS: Carvedilol 6.25 MG Tab PO SCH (20:06)
[2021-02-22] MEDS: Losartan 50 MG Tab PO SCH (20:06)
[2021-02-22] MEDS: Aspirin 325 MG Tab.EC PO SCH (20:06)
[2021-02-22] MEDS: Spironolactone 25 MG Tab PO SCH (20:07)
[2021-02-22] MEDS: amLODIPine 5 MG Tab PO SCH (20:07)
[2021-02-22] MEDS ORDERED: Albuterol 8 GM Inhaler INH PRN (20:36)
[2021-02-22] MEDS: hydrALAZINE 25 MG Tab PO SCH (21:13)
[2021-02-22] MEDS: Diltiazem IR 30 MG Tab PO SCH (21:13)
[2021-02-22] MEDS: atorvaSTATin 40 MG Tab PO SCH (22:39)
[2021-02-22] MEDS: Budesonide/Formoterol 160-4.5 MCG/Puff 6 GM Inhaler INH SCH (23:27)
[2021-02-23] MEDS: Diltiazem IR 30 MG Tab PO SCH ×4 (03:07→14:20)
[2021-02-23] MEDS: hydrALAZINE 25 MG Tab PO SCH ×2 (06:25→14:20)
[2021-02-23 07:26] LABS: CARBON DIOXIDE,CO2 22.5 mmol/L (21.0-32.0); POTASSIUM,K 4.1 mmol/L (3.5-5.1)
[2021-02-23] MEDS: Aspirin 325 MG Tab.EC PO SCH (08:18)
[2021-02-23] MEDS: Spironolactone 25 MG Tab PO SCH (08:19)
[2021-02-23] MEDS: amLODIPine 5 MG Tab PO SCH (08:19)
[2021-02-23] MEDS: Losartan 50 MG Tab PO SCH (08:19)
[2021-02-23] MEDS: atorvaSTATin 40 MG Tab PO SCH (08:19)
[2021-02-23] MEDS: Carvedilol 6.25 MG Tab PO SCH (08:19)
[2021-02-23] MEDS: Budesonide/Formoterol 160-4.5 MCG/Puff 6 GM Inhaler INH SCH (08:56)
--- NOTE | 2021-02-23 15:55 | PCM.DCSUM1 ---
Discharge Summary - Hospital Course Free Text/Narrative:: Patient was admitted with chest pain history over the past 4 to 5 days. On the day of admission, 02/22/21, he had used four nitroglycerin without complete relief of pain. When admitted to ED he was found to be in atrial fibrillation with RVR. Cardizem IV was given 25 mg which probably put him into sinus rhythm. He was then placed on oral diltiazem 30 mg p.o. every 6 hours. Since admission he has had 3 normal troponins. He has had no further chest pain. Patient has been a chronic smoker in the past but not very recently. He has last seen the heart service at [facility] with Dr. Mendoza, but does not recall who his deaf/hard of hearing specialist is. He sees BREANNA Ascencio at the [facility] here in [place]. He reports that he is compliant with his medications. He lives about 12 miles out of [place] together with his whom he says is not a good health. His daughter Lala accompanies him at discharge and will help run errands and keep an eye. Patient is discharged with stable vital signs and without chest pain. Only new medication is Cardizem CD 120 mg daily; other medications have been continued as were given before. Diagnosis: Stroke: No Modified Talcott Scale: No Symptoms at All Modified Talcott Scale Score: 0 - Discharge Data Discharge Date: 02/23/21 Discharge Disposition: Home, Self-Care 01 Condition: Stable - Referral to Home Health Primary Care Physician: Wojciech Matos DESK MAKER - Discharge Diagnosis/Problem(s) (1) Atrial fibrillation SNOMED Code(s): 07324682 ICD Code: I48.91 - UNSPECIFIED ATRIAL FIBRILLATION Status: Acute Priority: High Current Visit: Yes Onset Date: Unknown Qualifiers: Atrial fibrillation type: unspecified Qualified Code(s): I48.91 - Unspecified atrial fibrillation (2) Chronic kidney disease (CKD) SNOMED Code(s): 378267518 ICD Code: N18.9 - CHRONIC KIDNEY DISEASE, UNSPECIFIED Status: Chronic Priority: Medium Current Visit: No Onset Date: Unknown Qualifiers: Chronic kidney disease stage: unspecified stage Qualified Code(s): N18.9 - Chronic kidney disease, unspecified (3) Mild dehydration SNOMED Code(s): 6189329205385 ICD Code: E86.0 - DEHYDRATION Status: Resolved Priority: Medium Current Visit: No - Patient Instructions Diet: Heart Healthy Diet Activity: As Tolerated Driving: Do Not Drive Showering/Bathing: May Shower Notify Provider of: Fever, Increased Pain Other/Special Instructions: Chest pain, whether or not treated with nitroglycerin, should lead to ER evaluation and transfer to your deaf/hard of hearing specialist in [place]. Please call the [facility] in [place] for an appointment in next two weeks. - Discharge Plan Home Medications: Home Meds Albuterol [Proventil HFA] 1 puff INH ASDIRECTED 08/07/15 [History] Aspirin/Calcium Carbonate/Mag [Aspirin Buffered 325 mg Tab] 1 tab PO DAILY 08/07/15 [History] Nitroglycerin [Nitrostat] 1 tab SL ASDIRECTED 08/07/15 [History] amLODIPine Besylate [Amlodipine Besylate] 1 tab PO DAILY 08/07/15 [History] Losartan [Cozaar] 100 mg PO DAILY 07/13/18 [History] Spironolactone [Aldactone] 25 mg PO DAILY 07/13/18 [History] atorvaSTATin [Lipitor] 80 mg PO DAILY 07/13/18 [History] carvediloL [Carvedilol] 6.25 mg PO BID 07/13/18 [History] hydrALAZINE [Apresoline] 100 mg PO TID 07/13/18 [History] Ascorbic Acid [Vitamin C] 1 tab PO QAM 02/22/21 [History] Budesonide/Formoterol [Symbicort 160-4.5 MCG] 6 gm PO DAILY 02/22/21 [History] Zinc 1 cap PO QAM 02/22/21 [History] Oxygen Therapy Mode: Room Air Patient Handouts: Atrial Fibrillation, [id number] Referrals: Wojciech Matos DESK MAKER [Primary Care Provider] - - Discharge Summary/Plan Comment DC Time >30 min.: Yes Total # of Minutes for Discharge Time: 45 - General Info Date of Service: 02/23/21 Admission Dx/Problem (Free Text: Admission Diagnosis/Problem Admission Diagnosis/Problem Atrial fibrillation Subjective Update: Patient was admitted with chest pain history over the past 4 to 5 days. On the day of admission, 02/22/21, he had used four nitroglycerin without complete relief of pain. When admitted to ED he was found to be in atrial fibrillation with RVR. Cardizem IV was given 25 mg which probably put him into sinus rhythm. He was then placed on oral diltiazem 30 mg p.o. every 6 hours. Since admission he has had 3 normal troponins. He has had no further chest pain. Patient has been a chronic smoker in the past but not very recently. He has last seen the heart service at [facility] with Dr. Mendoza, but does not recall who his deaf/hard of hearing specialist is. He sees BREANNA Ascencio at the [facility] here in [place]. He reports that he is compliant with his medications. He lives about 12 miles out of [place] together with his whom he says is not a good health. His daughter Lala accompanies him at discharge and will help run errands and keep an eye. Patient is discharged with stable vital signs and without chest pain. Only new medication is Cardizem CD 120 mg daily; other medications have been continued as were given before. Functional Status: Reports: Pain Controlled, Tolerating Diet, Ambulating, Urinating - Review of Systems General: Reports: No Symptoms HEENT: Reports: No Symptoms Pulmonary: Reports: No Symptoms Cardiovascular: Reports: No Symptoms Gastrointestinal: Reports: No Symptoms Genitourinary: Reports: No Symptoms Musculoskeletal: Reports: No Symptoms Skin: Reports: No Symptoms Neurological: Reports: No Symptoms Psychiatric: Reports: No Symptoms - Patient Data Vitals - Most Recent: Last Vital Signs Temp 97.5 F 02/23/21 12:00 Pulse 98 02/23/21 12:00 Resp 20 02/23/21 12:00 BP 125/83 02/23/21 14:20 Pulse Ox 94 L 02/23/21 12:00 Weight - Most Recent: 251 lb 12.286 oz I&O - Last 24 hours: Intake & Output 02/23/21 02/23/21 02/23/21 06:59 14:59 22:59 Intake Total 400 Output Total 775 Balance -375 Lab Results - Last 24 hrs: Laboratory Results - last 24 hr 02/22/21 02/22/21 02/22/21 Range/Units 15:12 15:41 15:41 WBC 7.44 (4.0-11.0) K/uL RBC 4.79 (4.50-5.90) M/uL Hgb 14.1 (13.0-17.0) g/dL Hct 42.0 (38.0-50.0) % MCV 87.7 (80.0-98.0) fL MCH 29.4 (27.0-32.0) pg MCHC 33.6 (31.0-37.0) g/dL RDW Std Deviation 47.9 (28.0-62.0) fl RDW Coeff of Caro 15 (11.0-15.0) % Plt Count 144 L (150-400) K/uL MPV 9.10 (7.40-12.00) fL Neut % (Auto) 74.8 (48.0-80.0) % Lymph % (Auto) 11.7 L (16.0-40.0) % [place] % (Auto) 9.7 (0.0-15.0) % Eos % (Auto) 3.4 (0.0-7.0) % Baso % (Auto) 0.4 (0.0-1.5) % Neut # (Auto) 5.6 (1.4-5.7) K/uL Lymph # (Auto) 0.9 (0.6-2.4) K/uL [place] # (Auto) 0.7 (0.0-0.8) K/uL Eos # (Auto) 0.3 (0.0-0.7) K/uL Baso # (Auto) 0.0 (0.0-0.1) K/uL Nucleated RBC % 0.0 /100WBC Nucleated RBCs # 0 K/uL INR APTT (18.6-31.3) SEC D-Dimer, Quantitative 1.98 H (0.0-0.50) mg/L FEU Sodium (136-148) mmol/L Potassium (3.5-5.1) mmol/L Chloride (98-107) mmol/L Carbon Dioxide (21.0-32.0) mmol/L BUN (7.0-18.0) mg/dL Creatinine (0.8-1.3) mg/dL Est Cr Clr Drug Dosing mL/min Estimated GFR (MDRD) ml/min Glucose (74-106) mg/dL Calcium (8.5-10.1) mg/dL Magnesium (1.8-2.4) mg/dL Troponin I (0.000-0.056) ng/mL B-Natriuretic Peptide (<100) PG/ML SARS-CoV-2 RNA (KELI) NEGATIVE (NEGATIVE) 02/22/21 02/22/21 02/22/21 Range/Units 15:41 15:41 15:41 WBC (4.0-11.0) K/uL RBC (4.50-5.90) M/uL Hgb (13.0-17.0) g/dL Hct (38.0-50.0) % MCV (80.0-98.0) fL MCH (27.0-32.0) pg MCHC (31.0-37.0) g/dL RDW Std Deviation (28.0-62.0) fl RDW Coeff of Caro (11.0-15.0) % Plt Count (150-400) K/uL MPV (7.40-12.00) fL Neut % (Auto) (48.0-80.0) % Lymph % (Auto) (16.0-40.0) % [place] % (Auto) (0.0-15.0) % Eos % (Auto) (0.0-7.0) % Baso % (Auto) (0.0-1.5) % Neut # (Auto) (1.4-5.7) K/uL Lymph # (Auto) (0.6-2.4) K/uL [place] # (Auto) (0.0-0.8) K/uL Eos # (Auto) (0.0-0.7) K/uL Baso # (Auto) (0.0-0.1) K/uL Nucleated RBC % /100WBC Nucleated RBCs # K/uL INR 1.00 APTT 31.3 (18.6-31.3) SEC D-Dimer, Quantitative (0.0-0.50) mg/L FEU Sodium 137 (136-148) mmol/L Potassium 4.2 (3.5-5.1) mmol/L Chloride 102 (98-107) mmol/L Carbon Dioxide 22.3 (21.0-32.0) mmol/L BUN 33 H (7.0-18.0) mg/dL Creatinine 1.7 H (0.8-1.3) mg/dL Est Cr Clr Drug Dosing 39.99 mL/min Estimated GFR (MDRD) 39.5 ml/min Glucose 110 H (74-106) mg/dL Calcium 9.2 (8.5-10.1) mg/dL Magnesium 2.1 (1.8-2.4) mg/dL Troponin I < 0.050 (0.000-0.056) ng/mL B-Natriuretic Peptide 135 H (<100) PG/ML SARS-CoV-2 RNA (KELI) (NEGATIVE) 02/22/21 02/22/21 02/23/21 Range/Units 18:02 20:00 06:19 WBC (4.0-11.0) K/uL RBC (4.50-5.90) M/uL Hgb (13.0-17.0) g/dL Hct (38.0-50.0) % MCV (80.0-98.0) fL MCH (27.0-32.0) pg MCHC (31.0-37.0) g/dL RDW Std Deviation (28.0-62.0) fl RDW Coeff of Caro (11.0-15.0) % Plt Count (150-400) K/uL MPV (7.40-12.00) fL Neut % (Auto) (48.0-80.0) % Lymph % (Auto) (16.0-40.0) % [place] % (Auto) (0.0-15.0) % Eos % (Auto) (0.0-7.0) % Baso % (Auto) (0.0-1.5) % Neut # (Auto) (1.4-5.7) K/uL Lymph # (Auto) (0.6-2.4) K/uL [place] # (Auto) (0.0-0.8) K/uL Eos # (Auto) (0.0-0.7) K/uL Baso # (Auto) (0.0-0.1) K/uL Nucleated RBC % /100WBC Nucleated RBCs # K/uL INR APTT (18.6-31.3) SEC D-Dimer, Quantitative (0.0-0.50) mg/L FEU Sodium 140 (136-148) mmol/L Potassium 4.1 (3.5-5.1) mmol/L Chloride 106 (98-107) mmol/L Carbon Dioxide 22.5 (21.0-32.0) mmol/L BUN 27 H (7.0-18.0) mg/dL Creatinine 1.8 H (0.8-1.3) mg/dL Est Cr Clr Drug Dosing 37.77 mL/min Estimated GFR (MDRD) 37.0 ml/min Glucose 99 (74-106) mg/dL Calcium 8.6 (8.5-10.1) mg/dL Magnesium (1.8-2.4) mg/dL Troponin I < 0.050 < 0.050 (0.000-0.056) ng/mL B-Natriuretic Peptide (<100) PG/ML SARS-CoV-2 RNA (KELI) (NEGATIVE) Med Orders - Current: Current Medications Acetaminophen (Acetaminophen 325 Mg Tab) 650 mg PO Q4H PRN PRN Reason: Pain (Mild 1-3)/fever Albuterol (Albuterol 8 Gm Inhaler) 0 gm INH Q6HR PRN PRN Reason: Wheezing Amlodipine Besylate (Amlodipine 5 Mg Tab) 10 mg PO DAILY [facility] Last Admin: 02/23/21 08:19 Dose: 10 mg Documented by: Aspirin (Aspirin 325 Mg Tab.Ec) 325 mg PO DAILY [facility] Last Admin: 02/23/21 08:18 Dose: 325 mg Documented by: Atorvastatin Calcium (Atorvastatin 40 Mg Tab) 80 mg PO DAILY [facility] Last Admin: 02/23/21 08:19 Dose: 80 mg Documented by: Budesonide/Formoterol Fumarate (Budesonide/Formoterol 160-4.5 Mcg/Puff 6 Gm Inhaler) 0 gm INH BID [facility] Last Admin: 02/23/21 08:56 Dose: Not Given Documented by: Carvedilol (Carvedilol 6.25 Mg Tab) 6.25 mg PO BID [facility] Last Admin: 02/23/21 08:19 Dose: 6.25 mg Documented by: Diltiazem HCl (Diltiazem Ir 30 Mg Tab) 30 mg PO Q6H [facility] Last Admin: 02/23/21 14:20 Dose: 30 mg Documented by: Hydralazine HCl (Hydralazine 25 Mg Tab) 100 mg PO TID [facility] Last Admin: 02/23/21 14:20 Dose: 100 mg Documented by: Losartan Potassium (Losartan 50 Mg Tab) 100 mg PO DAILY [facility] Last Admin: 02/23/21 08:19 Dose: 100 mg Documented by: Nitroglycerin (Nitroglycerin 0.4 Mg Tab.Sl) 0.4 mg SL Q5M PRN PRN Reason: Chest Pain Spironolactone (Spironolactone 25 Mg Tab) 25 mg PO DAILY [facility] Last Admin: 02/23/21 08:19 Dose: 25 mg Documented by: Discontinued Medications Apixaban (Apixaban 5 Mg Tab) 5 mg PO ONETIME ONE Stop: 02/22/21 17:46 Last Admin: 02/22/21 18:19 Dose: 5 mg Documented by: Budesonide/Formoterol Fumarate (Budesonide/Formoterol 160-4.5 Mcg/Puff 6 Gm Inhaler) 6 gm INH DAILY [facility] Last Admin: 02/23/21 06:59 Dose: Not Given Documented by: Diltiazem HCl (Diltiazem 25 Mg/5 Ml Sdv) 25 mg IVPUSH ONETIME ONE Stop: 02/22/21 15:25 Last Admin: 02/22/21 15:55 Dose: 25 mg Documented by: Diltiazem HCl (Diltiazem Ir 30 Mg Tab) 30 mg PO Q6HR [facility] Last Admin: 02/23/21 07:00 Dose: Not Given Documented by: Sodium Chloride (Normal Saline) 500 mls @ 999 mls/hr IV .Bolus ONE Stop: 02/22/21 16:59 Last Admin: 02/22/21 17:00 Dose: 999 mls/hr Documented by: Iopamidol (Iopamidol 755 Mg/Ml 500 Ml Multipack Bottle) 75 ml IVPUSH ONETIME STA Stop: 02/22/21 18:56 Last Admin: 02/22/21 18:56 Dose: 75 ml Documented by: Nitroglycerin (Nitroglycerin 0.4 Mg Tab.Sl) 0.4 mg SL Q5M PRN PRN Reason: Chest Pain Nitroglycerin (Nitroglycerin 0.4 Mg Tab.Sl) 0.4 mg SL ASDIRECTED [facility] Non-Formulary Medication (Albuterol) 1 puff INH ASDIRECTED [facility] - Exam General: Reports: Alert, Oriented HEENT: Reports: Pupils Equal, Pupils Reactive, Mucous Membr. Moist/[place] Neck: Reports: Supple Lungs: Reports: Clear to Auscultation, Normal Respiratory Effort Cardiovascular: Reports: Regular Rate, Regular Rhythm GI/Abdominal Exam: Normal Bowel Sounds, Soft, Non-Tender, No Organomegaly (Male) Exam: Deferred Rectal (Males) Exam: Deferred Extremities: Normal Inspection, No Pedal Edema Skin: Reports: Warm, Dry, Intact Neurological: Reports: No New Focal Deficit Psy/Mental Status: Reports: Alert, Normal Affect, Normal Mood
[2021-02-23 16:59] VITALS: BP 125/71; PULSE 69
== END 2021-02-23 16:40 | disposition home or self-care (01) ==
LOC: MW.ED 15:03 → MW.MS 18:03 → UNDOADMOB 18:20 → MW.MS 18:20
PROVIDERS: ADMIT Hospitalist; ATTEND Hospitalist
DX: I25.110 Atherosclerotic heart disease of native coronary artery with unstable angina pectoris (principal); I48.91 Unspecified atrial fibrillation; J44.9 Chronic obstructive pulmonary disease, unspecified; E78.5 Hyperlipidemia, unspecified; I12.9 Hypertensive chronic kidney disease with stage 1 through stage 4 chronic kidney disease, or unspecified chronic kidney disease; N18.9 Chronic kidney disease, unspecified; Z79.899 Other long term (current) drug therapy; E78.00 Pure hypercholesterolemia, unspecified; G47.30 Sleep apnea, unspecified; E66.9 Obesity, unspecified; E86.0 Dehydration; Z20.822 Contact with and (suspected) exposure to COVID-19; Z79.82 Long term (current) use of aspirin; Z87.891 Personal history of nicotine dependence; Z68.35 Body mass index [BMI] 35.0-35.9, adult
CPT/HCPCS: 36415; 71045; 71275; 80048; 83735; 83880; 84484; 85025; 85379; 85610; 85730; 87635; 93005; 96374; 99285; A9270; J3490; J7030; Q9967; G0378; U0002

== ENCOUNTER 2024-02-20 11:48 | Observation (INO) | payer MEDICARE, BC ==
[2024-02-20 12:53] LABS: BASOPHILS ABSOLUTE AUTO 0.05 K/uL (0.00-0.20); BASOPHILS PERCENT AUTO 0.7 % (0.0-1.0); EOSINOPHILS ABSOLUTE AUTO 0.43 K/uL (0.00-0.45); EOSINOPHILS PERCENT AUTO 5.7 % (0.0-6.0); HEMOGLOBIN 11.4 g/dL (14.0-18.0); IMMATURE GRAN ABSOLUTE AUTO 0.07 K/uL (0.00-0.05); IMMATURE GRAN PERCENT AUTO 0.9 % (0.0-0.4); LYMPHOCYTES ABSOLUTE AUTO 0.78 K/uL (1.00-4.80); LYMPHOCYTES PERCENT AUTO 10.4 % (24.0-44.0); MEAN CORPUSCULAR HEMOGLOBIN 27.6 pg (28.0-32.0); MEAN CORPUSCULAR HGB CONC 32.6 g/dL (32.0-36.0); MEAN CORPUSCULAR VOLUME 84.7 fL (83.0-99.0); MEAN PLATELET VOLUME 8.8 fL (9.4-12.4); MONOCYTES ABSOLUTE AUTO 0.81 K/uL (0.00-0.80); MONOCYTES PERCENT AUTO 10.8 % (0.0-8.0); NEUTROPHILS ABSOLUTE AUTO 5.39 K/uL (1.80-7.70); NEUTROPHILS PERCENT AUTO 71.5 % (41.0-71.0); PLATELET COUNT,PLT 176 K/uL (150-400); RED BLOOD CELL COUNT 4.13 M/uL (4.52-5.90); WHITE BLOOD CELL COUNT,WBC 7.53 K/uL (3.9-11.3)
[2024-02-20 13:11] LABS: A/G RATIO 1.1 (0.9-1.6); ALBUMIN 3.7 g/dL (3.4-5.0); BILIRUBIN TOTAL 0.5 mg/dL (0.2-1.0); CALCIUM 8.9 mg/dL (8.5-10.1); CREATININE 1.9 mg/dL (0.8-1.3); EST CRCL DRUG DOSING (CG) 33.08 mL/min; POTASSIUM,K 4.4 mmol/L (3.5-5.1); PROTEIN TOTAL,TP 7.2 g/dL (6.4-8.2)
[2024-02-20] MEDS: Furosemide 40 MG/4 ML VIAL IVPUSH ONE ×2 (13:38→20:45)
[2024-02-20] MEDS ORDERED: ALBUTEROL INH SCH (15:15)
[2024-02-20] MEDS ORDERED: Albuterol 8 GM Inhaler INH SCH (15:30)
[2024-02-20] MEDS ORDERED: Albuterol 8 GM Inhaler INH PRN (15:30)
[2024-02-20] MEDS: Diltiazem 120 MG Cap.CD PO SCH (20:44)
[2024-02-20] MEDS: Apixaban 5 MG Tab PO SCH (20:45)
[2024-02-20] MEDS: hydrALAZINE 25 MG Tab PO SCH (23:00)
[2024-02-20] MEDS: Carvedilol 6.25 MG Tab PO SCH (23:01)
[2024-02-21 00:08] LABS: CREATININE,URINE RAND 19.9 mg/dL
[2024-02-21 00:13] LABS: PROTEIN,URINE RANDOM < 6.0 mg/dL (<11.9)
[2024-02-21 05:40] LABS: BASOPHILS ABSOLUTE AUTO 0.05 K/uL (0.00-0.20); BASOPHILS PERCENT AUTO 0.7 % (0.0-1.0); EOSINOPHILS ABSOLUTE AUTO 0.42 K/uL (0.00-0.45); EOSINOPHILS PERCENT AUTO 5.8 % (0.0-6.0); HEMATOCRIT 34.4 % (42.0-52.0); HEMOGLOBIN 11.4 g/dL (14.0-18.0); IMMATURE GRAN ABSOLUTE AUTO 0.06 K/uL (0.00-0.05); IMMATURE GRAN PERCENT AUTO 0.8 % (0.0-0.4); LYMPHOCYTES ABSOLUTE AUTO 0.88 K/uL (1.00-4.80); LYMPHOCYTES PERCENT AUTO 12.2 % (24.0-44.0); MEAN CORPUSCULAR HEMOGLOBIN 27.9 pg (28.0-32.0); MEAN CORPUSCULAR HGB CONC 33.1 g/dL (32.0-36.0); MEAN CORPUSCULAR VOLUME 84.1 fL (83.0-99.0); MEAN PLATELET VOLUME 8.7 fL (9.4-12.4); MONOCYTES ABSOLUTE AUTO 0.88 K/uL (0.00-0.80); MONOCYTES PERCENT AUTO 12.2 % (0.0-8.0); NEUTROPHILS ABSOLUTE AUTO 4.94 K/uL (1.80-7.70); NEUTROPHILS PERCENT AUTO 68.3 % (41.0-71.0); PLATELET COUNT,PLT 179 K/uL (150-400); RED BLOOD CELL COUNT 4.09 M/uL (4.52-5.90); WHITE BLOOD CELL COUNT,WBC 7.23 K/uL (3.9-11.3)
[2024-02-21 06:11] LABS: ALBUMIN 3.6 g/dL (3.4-5.0); BILIRUBIN TOTAL 0.6 mg/dL (0.2-1.0); CALCIUM 8.9 mg/dL (8.5-10.1); CARBON DIOXIDE,CO2 24.6 mmol/L (21.0-32.0); CREATININE 2.2 mg/dL (0.8-1.3); EST CRCL DRUG DOSING (CG) 28.57 mL/min; MAGNESIUM 2.2 mg/dL (1.8-2.4); PHOSPHORUS 4.3 mg/dL (2.6-4.7); POTASSIUM,K 3.7 mmol/L (3.5-5.1); PROTEIN TOTAL,TP 7.3 g/dL (6.4-8.2)
[2024-02-21] MEDS: Furosemide 40 MG/4 ML VIAL IVPUSH SCH (08:12)
[2024-02-21] MEDS ORDERED: Formoterol/Mometasone 200-5 MCG 8.8 GM Inhaler INH SCH (09:00)
[2024-02-21] MEDS ORDERED: Aspirin 325 MG Tab.EC PO SCH (09:00)
[2024-02-21] MEDS: Aluminum Hydroxide/Magnesium Hydroxide/Simethicone Susp 30 ML Cup PO SCH (09:08)
[2024-02-21] MEDS: amLODIPine 5 MG Tab PO SCH (09:10)
[2024-02-21] MEDS: Pantoprazole 40 MG Tab.CR PO SCH (09:11)
[2024-02-21] MEDS: atorvaSTATin 40 MG Tab PO SCH (09:11)
[2024-02-21] MEDS: Aspirin 325 MG Tab.EC PO SCH (09:11)
[2024-02-21] MEDS: Spironolactone 25 MG Tab PO SCH (09:11)
[2024-02-21] MEDS: Losartan 50 MG Tab PO SCH (09:11)
[2024-02-21 09:22] VITALS: BP 111/76; PULSE 99
[2024-02-21] MEDS ORDERED: hydrALAZINE 25 MG Tab PO SCH (10:15)
== END 2024-02-21 11:45 | disposition home or self-care (01) ==
LOC: MW.ED 11:48 → MW.MS 14:15
PROVIDERS: ADMIT Family Medicine; ATTEND Family Medicine
DX: I13.0 Hypertensive heart and chronic kidney disease with heart failure and stage 1 through stage 4 chronic kidney disease, or unspecified chronic kidney disease (principal); I50.33 Acute on chronic diastolic (congestive) heart failure; N18.32 Chronic kidney disease, stage 3b; J44.9 Chronic obstructive pulmonary disease, unspecified; I25.10 Atherosclerotic heart disease of native coronary artery without angina pectoris; E78.00 Pure hypercholesterolemia, unspecified; I48.0 Paroxysmal atrial fibrillation; Z95.5 Presence of coronary angioplasty implant and graft; Z79.82 Long term (current) use of aspirin; Z79.01 Long term (current) use of anticoagulants; Z79.899 Other long term (current) drug therapy
CPT/HCPCS: 36415; 71045; 80053; 82570; 83735; 83880; 84100; 84156; 84484; 85025; 87428; 93005; 93306; 96374; 96376; 99285; A9270; G0378; J1940